=== PATIENT | female | born 1970 | race Caucasian/White ===

== ENCOUNTER 2025-07-02 07:50 | Emergency (ER) | payer OTHER, SELFPAY ==
--- NOTE | 2025-07-02 07:50 | ECG_ITS ---
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 Measurements Intervals [place] Rate: 71 P: 50 FL: 127 QRS: 68 QRSD: 88 T: 67 QT: 388 QTc: 423 Interpretive Statements SINUS RHYTHM NONSPECIFIC ST & T-WAVE ABNORMALITY No previous ECG available for comparison Electronically Signed On 07-02-2025 21:16:47 CDT by Jarocho Wilcox M.D. [id number]
--- NOTE | 2025-07-02 07:53 | XRR_ITS ---
PROCEDURE INFORMATION: Exam: XR Chest Exam date and time: 07/02/2025 8:00 AM Age: 55 years old Clinical indication: Pain; Angina pectoris; Additional info: Chest pain TECHNIQUE: Imaging protocol: Radiologic exam of the chest. Views: 1 view. COMPARISON: CR XR chest 2V* [id number] 12/24/2018 10:19 AM FINDINGS: Lungs: Unremarkable. No consolidation. Pleural spaces: Unremarkable. No pleural effusion. No pneumothorax. Heart/Mediastinum: Stable cardiomediastinal silhouette. Bones/joints: Degenerative changes of the spine seen. XR/XR chest 1V portable [id number] IMPRESSION: No acute findings.
[2025-07-02 08:00] VITALS: BP 152/91; PULSE 62; RESP 18; TEMP 36.6; O2SAT 98; BMI 29.7
--- NOTE | 2025-07-02 08:18 | ED_ITS ---
HPI - Chest Pain 2 General: Chief Complaint: Chest Pain Stated Complaint: cp Time Seen by Provider: 07/02/25 07:53 History of Present Illness: 55-year-old female presents to the emerg ency room with complaints of chest pain that began suddenly while at work. Pain is reproducible with deep breath and with palpation across her chest. No recent trauma no fever sweats chills no productive cough pain does not radiate it is focal to the lower ribs on the left at the midclavicular line. Associated symptoms: Deny abdominal pain, dyspnea or fever(s) Related Data Home Medications ?Medication ?Instructions ?Recorded ?Confirmed sertraline 100 mg tablet (Zoloft) 100 mg PO DAILY 09/1007/02/25 acetaminophen 500 mg tablet 1,000 mg PO Q6H PRN Fever Or Pain 07/02/25 07/02/25 (Tylenol Extra Strength) tiotropium 2.5 mcg-olodaterol 2.5 1 puff inhalation DA LOLA 07/02/25 07/02/25 mcg/actuation mist for inhalation (Stiolto Respimat) Previous Rx's ?Medication ?Instructions ?Recorded tramadol 50 mg tablet 50 mg PO Q8H PRN pain #6 tab s 07/02/25 Allergies Allergy/AdvReac Type Severity Reaction Status Date / Time NSAIDS (Non-Steroidal Allergy Intermediate rash, Verified 05/15/25 07:08 Anti-Inflamma vomiting Penicillins Allergy Intermediate rash, Verified 05/15/25 07:08 vomiting Review of Systems 2 Const: Denies: fever(s) or chills Card: Reports: chest pain Resp: Denies: dyspnea GI: Denies: abdominal pain : Denies: dysuria, urinary frequency or urinary urgency Musc: Denies: neck pain or back pain Skin/Breast: Denies: rash PFSH ED 2 PFSH: Social History Smoking and tobacco/nicotine status: current every day tobacco/nicotine user Alcohol intake: never Substance/Drug Use: never Physical Exam 2 Const: GENERAL APPEARANCE: cooperative ORIENTATION/CONSCIOUSNESS: Yes awake, Yes oriented to person, Yes oriented to place and Yes oriented to time HENMT: COMMON NORMALS: normocephalic, atraumatic and hearing grossly normal bilaterally HEAD & SCALP: normocephalic and atraumatic Resp: COMMON NORMALS: normal respiratory effort, No retractions, No use of accessory muscles and clear to auscultation bilaterally AUSCULTATION: clear to auscultation bilaterally Cardio: COMMON NORMALS: regular rate, regular rhythm and No murmurs present (Cardio) RATE: regular rate RHYTHM: regular rhythm GI: COMMON NORMALS: Soft to palpation and No hepatosplenomegaly present A USCULTATION: Yes normoactive bowel sounds PALPATION: Yes Soft to palpation, No Tenderness to palpation present (GI), No Guarding due to palpation present (GI) and Yes No hepatosplenomegaly present Extremity: COMMON NORMALS: normal to inspection, capillary refill normal, no clubbing, cyanosis or edema, no calf tenderness and no pedal edema Neuro: SENSORIUM/ORIENTATION: Yes oriented to person, Yes oriented to place and Yes oriented to time Skin: COMMON NORMALS: no rashes or lesions noted GENERAL SKIN EXAM: no rashes or lesions noted Course 2 Vital Signs: Vital signs: Vital Signs Temperature 97.8 F 07/02/25 08:00 Pulse Rate 77 07/02/25 11:18 Respiratory Rate 16 07/02/25 08:58 Blood Pressure 160/72 07/02/25 11:18 Pulse Oximetry 98 07/02/25 11:18 Oxygen Delivery Me thod Room Air 07/02/25 08:58 MDM - Chest Pain Medical Decision Making EKG and cardiac enzymes are negative. Patient to be discharged home. She did have some improvement while here. Symptoms have resolved at this time. Labs and imaging reviewed with the patient. No sign of acute coronary syndrome oxygen saturation has been normal and she has not been tachycardic chest x-ray did not show any pneumonia or pneumothorax or widening the mediastinum Medical Records I reviewed the patient's medical records. Lab Data I reviewed the patient's lab results. 07/02/25 08:21 07/02/25 08:21 Radiology Impressions Chest X-Ray 07/02/25 07:53 IMPRESSION: No acute findings. Laboratory Results WBC 8.39 10^3/uL (3.29-11.43) 07/02/25 08:21 RBC 5.02 10^6/uL (3.85-5.65) 07/02/25 08:21 Hgb 14.80 g/dL (11.27-16.99) 07/02/25 08:21 Hct 43.8 % (36-47) 07/02/25 08:21 MCV 87.3 fl (85-98) 07/02/25 08:21 MCH 29.5 pg (27-33) 07/02/25 08:21 MCHC 33.8 g/dL (30-55) 07/02/25 08:21 RDW 13.1 % (12.1-15.1) 07/02/25 08:21 Plt Count 299 10^3/cmm (157-399) 07/02/25 08:21 MPV 9.6 fL (7.4-10.4) 07/02/25 08:21 Neut % (Auto) 57.1 % 07/02/25 08:21 Lymph % (Auto) 34.8 % 07/02/25 08:21 Perkins % (Auto) 5.2 % 07/02/25 08:21 Eos % (Auto) 2.0 % 07/02/25 08:21 Baso % (Auto) 0.7 % 07/02/25 08:21 Neut # (Auto) 4.78 10^3/uL (1.8-7.7) 07/02/25 08:21 Lymph # (Auto) 2.9 10^3/uL (0.8-4.8) 07/02/25 08:21 Perkins # (Auto) 0.4 10^3/uL (0.2-0.9) 07/02/25 08:21 Eos # (Auto) 0.2 10^3/uL (0.0-0.8) 07/02/25 08:21 Baso # (Auto) 0.1 10^3/uL (0.0-0.1) 07/02/25 08:21 Nucleated RBC % (auto) 0 % 07/02/25 08:21 Nucleated RBCs # 0.0 /100WBC 07/02/25 08:21 Sodium 141 mmol/L (136-145) 07/02/25 08:21 Potassium 4.0 mmol/L (3.5-5.1) 07/02/25 08:21 Chloride 104 mmol/L (98-107) 07/02/25 08:21 Carbon Dioxide 25 mmol/L (22-29) 07/02/25 08:21 Anion Gap 16.0 (5-19) 07/02/25 08:21 BUN 9 mg/dL (6-20) 07/02/25 08:21 Creatinine 0.6 mg/dL (0.5-0.9) 07/02/25 08:21 GFR Calculation 103.0 mL/min (90-130) 07/02/25 08:21 Glucose 102 mg/dL (65-115) 07/02/25 08:21 Calculated Osmolality 291 mOsm/kg (285-295) 07/02/25 08:21 Calcium 9.4 mg/dL (8.5-10.5) 07/02/25 08:21 Total Bilirubin 0.3 mg/dL (0.15-1.2) 07/02/25 08:21 AST 15 U/L (0-32) 07/02/25 08:21 ALT 11 U/L (0-33) 07/02/25 08:21 Alkaline Phosphatase 93 U/L (35-105) 07/02/25 08:21 Troponin T Baseline < 6 ng/L (0-10) 07/02/25 08:21 Troponin T 120 Minute < 6.0 ng/L (0-10) 07/02/25 10:10 Delta Troponin T 0 ABS# (0-10) 07/02/25 10:10 Total Protein 6.5 g/dL (6.6-8.7) L 07/02/25 08:21 Albumin 4.2 g/dL (3.5-5.2) 07/02/25 08:21 Globulin 2.3 g/dL (1.3-4.6) 07/02/25 08:21 All radiology interpretation(s) finalized by discharge Discharge Plan Discharge Patient Disposition: Home Clinical Impression: Anterior chest wall pain Condition: Stable Prescriptions: New tramadol 50 mg tablet 50 mg PO Q8H PRN (Reason: pain) Qty: 6 0RF No Action sertraline [Zoloft] 100 mg tablet 100 mg PO DAILY acetaminophen [Tylenol Extra Strength] 500 mg Tablet 1,000 mg PO Q6H PRN (Reason: Fever Or Pain) Stiolto Respimat 2.5-2.5 mcg/actuation mist 1 puff INHALATION DAILY Discharge Orders: Discharge ED (Routine); Ordered 07/02/25 Ordered By: Enrique Glass Referrals: Swapnil Wright MD [Primary Care Provider, Family Practice] Discharge Diet: Usual diet Discharge Activity: Resume usual activity Patient Instructions: Opioid Safety, Pain Management, Patient Portal & Bry Instructions Activity Restrictions/Additional Instructions: [facility]. It is very important that you follow up as instructed or that you return to the Emergency Department should you have concerns or if your condition changes or worsens in any way. Emergency department visits are focused on emergent conditions, in some cases you may require further evaluation on an outpatient basis. You were seen in the emergency room with complaints of chest pain. Your pain is reproducible with palpation and cardiac enzymes and EKGs were normal. Chest x- ray was also normal. Pain appears to be coming from the chest wall is musculoskeletal in nature. Discharged home with tramadol 1 every 8 hours as needed for pain if persist follow-up with your primary care doctor (Please note that included in your discharge packet is information concerning opioid safety and pain management. This information is given to all patients were discharged from the ER regardless of their discharge diagnosis or the medicines they usually take or are prescribed.) Print Language: Yoruba Coding Level of Care Code ED Shipping Technician for William Odell
[2025-07-02 08:38] LABS: Hematocrit 43.8 % (36-47); Hemoglobin 14.80 g/dL (11.27-16.99); Mean Corpuscular HGB Conc 33.8 g/dL (30-55); Mean Corpuscular Hemoglobin 29.5 pg (27-33); Mean Corpuscular Volume 87.3 fl (85-98); Nucleated Red Blood Cells % 0 %; Platelet Count 299 10^3/cmm (157-399); Red Blood Count 5.02 10^6/uL (3.85-5.65); White Blood Count 8.39 10^3/uL (3.29-11.43)
[2025-07-02 08:55] LABS: Troponin(5th) Baseline < 6 ng/L (0-10)
[2025-07-02] MEDS: morphine 4 mg/mL SDV 1 mL IVP (08:55)
[2025-07-02 08:58] VITALS: BP 168/97; PULSE 74; RESP 16; O2SAT 95
[2025-07-02 08:59] LABS: Alanine Aminotransferase 11 U/L (0-33); Albumin Level 4.2 g/dL (3.5-5.2); Alkaline Phosphatase 93 U/L (35-105); Aspartate Amino Transferase 15 U/L (0-32); Blood Urea Nitrogen 9 mg/dL (6-20); Calcium 9.4 mg/dL (8.5-10.5); Carbon Dioxide 25 mmol/L (22-29); Chloride 104 mmol/L (98-107); Creatinine Clr Calc Pharmacy 108.8907; Globulin 2.3 g/dL (1.3-4.6); Glucose 102 mg/dL (65-115); Osmolality Calculated 291 mOsm/kg (285-295); Sodium 141 mmol/L (136-145); Total Protein 6.5 g/dL (6.6-8.7)
[2025-07-02 09:00] LABS: Anion Gap 16.0 (5-19); Potassium 4.0 mmol/L (3.5-5.1)
--- NOTE | 2025-07-02 09:10 | ECG_ITS ---
[facility] Test Date: 2025-07-02 Pat Name: Gissell Farah Department: Room: Gender: Female Lab Courier: : 1970 Requested By: Enrique Coley Order Number: [id number] Martha MD: Jarocho Wilcox M.D. Measurements Intervals [place] Rate: 58 P: 58 [place]: 142 QRS: 73 QRSD: 90 T: 68 QT: 430 QTc: 423 Interpretive Statements SINUS BRADYCARDIA NONSPECIFIC ST- T-WAVE ABNORMALITY Compared to ECG 07/02/2025 07:50:59 NO SIGNIFICANT CHANGE Electronically Signed On 07-02-2025 22:29:10 CDT by Jarocho Wilcox M.D. [id number]
[2025-07-02 10:39] LABS: Troponin 5 2HR < 6.0 ng/L (0-10); Troponin 5 2HR Delta 0 ABS# (0-10)
[2025-07-02 11:00] VITALS: BP 148/108; PULSE 71; O2SAT 98
[2025-07-02 11:17] VITALS: BP 160/72; PULSE 77; O2SAT 96
[2025-07-02 11:18] VITALS: BP 160/72; PULSE 77; O2SAT 98
== END 2025-07-02 11:29 | disposition home or self-care (01) ==
PROVIDERS: Emergency Provider Family Medicine; PCP Family Medicine
DX: R07.89 Other chest pain (principal); Z72.0 Tobacco use
CPT/HCPCS: 36415; 71045; 80053; 84484; 85025; 93005; 96374; 99285; J2270; J9999